=== PATIENT | male | born 1975 | race African-American/Black ===

== ENCOUNTER 2017-06-19 12:36 | Emergency (ER) | payer OTHER ==
[2017-06-19 12:42] VITALS: BP 126/83; PULSE 77; TEMP 98; BMI 23.1
--- NOTE | 2017-06-19 13:14 | PDOC ---
History of Present Illness - General Chief Complaint: Injury Stated Complaint: INJURY Time Seen by Provider: 06/19/17 12:54 History Source: Patient Exam Limitations: No Limitations - History of Present Illness Initial Comments: 06/19/17 13:10 CHIEF COMPLAINT: Right knee instability HISTORY OF PRESENT ILLNESS: Patient is a 42-year-old male denies any significant medical history currently on no medication presents for right knee pain for 4 days. Patient reports he injured his knee when running up a flight of stairs had swelling to the knee for the last 24 hours has been applying ice walked in with no limp, no acute distress patient reports that he feels fine today because he iced it yesterday. REVIEW OF SYSTEMS: GENERAL: Afebrile, A&O x3 RESPIRATORY: No cough, wheezing, or hemoptysis. CARDIAC: No CP or SOB MUSCULOSKELETAL: Pain to right anterior knee SKIN : No erythema, no edema, no bruising, no deformity. NEUROLOGICAL: Denies any numbness or tingling. PHYSICAL EXAM: GENERAL: The patient is awake, alert, and fully oriented, in no acute distress. HEAD: Normal with no signs of trauma. RESPIRATORY: Lungs clear bilaterally no rhonchi, rales, or wheezes CARDIAC: S1-S2 audible, no murmur rub or gallop EXTREMITIES: Good range of motion to right knee, no fluid appreciated, no bulge sign. No pain to superior or inferior patella. Negative drop test. Negative posterior leg test. No joint laxity noted, no ecchymosis, no deformity, no abrasions ,no edema. +3 popliteal pulse. Negative Homans sign. No calf pain or tenderness, no erythema or edema. MUSCULOSKELETAL: No spinal point tenderness. SKIN: Warm, Dry, normal turgor, no erythema, no edema no bruising. Past History - Past Medical History Allergies/Adverse Reactions: Allergies Allergy/AdvReac Type Severity Reaction Status Date / Time sulfamethoxazole Allergy Intermediate Rash Verified 06/19/17 12:39 [From Bactrim] trimethoprim [From Bactrim] Allergy Intermediate Rash Verified 06/19/17 12:39 Home Medications: Ambulatory Orders NK [No Known Home Medication] 06/19/17 COPD: No - Immunization History Immunization Up to Date: Yes - Suicide/Smoking/Psychosocial Hx Smoking History: Never smoked Hx Alcohol Use: No Drug/Substance Use Hx: No *Physical Exam - Vital Signs Last Vital Signs Temp Pulse Resp BP Pulse Ox 98.0 F 77 18 126/83 100 06/19/17 12:37 06/19/17 12:37 06/19/17 12:37 06/19/17 12:37 06/19/17 12:37 Medical Decision Making - Medical Decision Making 06/19/17 13:14 A/P: Patient with right knee pain sent to x-ray X-ray noted with effusion, patient referred to orthopedics. He denies pain upon discharge. Reports he has not had pain since initial incident. I've instructed that it is important that he follows up, anti-inflammatories for pain. *DC/Admit/Observation/Transfer Diagnosis at time of Disposition: Knee effusion, right Knee pain Qualifiers: Chronicity: acute Laterality: right Qualified Code(s): M25.561 - Pain in right knee - Discharge Dispostion Disposition: HOME Condition at time of disposition: Stable Admit: No - Referrals Referrals: Nnamdi Gonzalez MD [Staff Physician] - - Patient Instructions Printed Discharge Instructions: DI for Knee Pain Additional Instructions: Recommend follow-up with orthopedics for knee pain Motrin as needed for pain - Post Discharge Activity Forms/Work/School Notes: Back to Work
== END 2017-06-19 14:48 | disposition home or self-care (01) ==
LOC: JERFT 12:36
DX: M25.561 Pain in right knee (principal); X50.0XXA Overexertion from strenuous movement or load, initial encounter; Y93.89 Activity, other specified; Y92.89 Other specified places as the place of occurrence of the external cause; Y99.8 Other external cause status
CPT/HCPCS: 73562-TC-RT-FY; 99281-25